=== PATIENT | female | born 1960 | race Caucasian/White ===

== ENCOUNTER 2017-01-21 13:46 | Emergency (ER) | payer MEDICARE, MEDICAID ==
--- NOTE | 2017-01-21 13:55 | EDM.PDOC ---
ED HPI GENERAL MEDICAL PROBLEM - General Chief Complaint: Gastrointestinal Problem Stated Complaint: [id number] IRRITABLE BOWEL Time Seen by Provider: 01/21/17 13:54 Source of Information: Reports: Patient, Old Records, RN, RN Notes Reviewed History Limitations: Reports: No Limitations - History of Present Illness INITIAL COMMENTS - FREE TEXT/NARRATIVE: C/O increasing abdominal pain and nausea and constipation. Last nl BM 4 days ago. Pt reports last BM was normal, but hard. Hx of IBS. Had been doing well. Previously had frequent ER visits due to abdominal pain, but last visit was 2015. Denies vomiting, fever, chills, or urinary Sx's. 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, Other Medication(s) Abdominal Pain Score (Numeric/FACES): 7 - Related Data Allergies Allergy/AdvReac Type Severity Reaction Status Date / Time amlodipine Allergy Nausea Verified 06/15/16 12:10 duloxetine HCl Allergy Diarrhea Verified 06/15/16 12:10 [From Cymbalta] gabapentin Allergy Disorientat Verified 06/15/16 12:10 ion pregabalin [From Lyrica] Allergy Diarrhea Verified 06/15/16 12:10 sumatriptan [From Imitrex] Allergy Respiratory Verified 06/15/16 12:10 Distress sumatriptan succinate Allergy Difficulty Verified 06/15/16 12:10 [From Imitrex] Breathing Home Meds: Home Meds Lisinopril/Hydrochlorothiazide [Lisinopril-Hctz 20-12.5 mg Tab] 1 tab PO BEDTIME 01/08/14 [History] QUEtiapine Fumarate [Quetiapine Fumarate] 100 mg PO BID 01/08/14 [History] Ranitidine HCl [Ranitidine] 150 mg PO BID 01/08/14 [History] Tiotropium [Spiriva Handihaler] 2 puff PO DAILY PRN 01/08/14 [History] Metoprolol Succinate [Toprol XL] 50 mg PO DAILY 09/26/14 [History] Albuterol [Proair HFA] 2 inh INH Q4H PRN 09/29/14 [History] Albuterol [Proventil Neb Soln] 3 ml INH ASDIRECTED PRN 09/29/14 [History] Bisacodyl [Dulcolax] 5 mg PO ASDIRECTED PRN 09/29/14 [History] Dicyclomine [Bentyl] 20 mg PO ASDIRECTED PRN 09/29/14 [History] Escitalopram [Lexapro] 20 mg PO DAILY 09/29/14 [History] Fluticasone Propionate [Flonase] 2 sprays INH DAILY 09/29/14 [History] Baclofen [Baclofen] 10 mg PO ASDIRECTED MDD pain 01/21/17 [History] Promethazine [Phenergan] 1 tab PO ASDIRECTED PRN 01/21/17 [History] Past Medical History HEENT History: Reports: Allergic Rhinitis Cardiovascular History: Reports: High Cholesterol, Hypertension Respiratory History: Reports: COPD Gastrointestinal History: Reports: Bowel Obstruction, Cholelithiasis, GERD, Irritable Bowel Syndrome Other Gastrointestinal History: Irritable Bowel 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: Neurological History: Reports: CVA, Migraines, Seizure Psychiatric History: Reports: Addiction, Anxiety, Depression Endocrine/Metabolic History: Reports: Obesity/BMI 30+ - Past Surgical History Female Surgical History: Reports: Hysterectomy Social & Family History - Family History Family Medical History: Noncontributory - Tobacco Use Smoking Status *Q: Current Every Day Smoker Years of Tobacco use: 20 Packs/Tins Daily: 1 Used Tobacco, but Quit: No Second Hand Smoke Exposure: Yes - Caffeine Use Caffeine Use: Reports: Coffee - Alcohol Use Days Per Week of Alcohol Use: 2 Number of Drinks Per Day: 6 Total Drinks Per Week: 12 - Recreational Drug Use Recreational Drug Use: Yes Drug Use in Last 12 Months: Yes Recreational Drug Type: Reports: Marijuana/Hashish Recreational Drug Use Frequency: Rarely - Living Situation & Occupation Living situation: Reports: Single, with Significant Other Occupation: Disabled ED ROS GENERAL - Review of Systems Review Of Systems: ROS reveals no pertinent complaints other than HPI. ED EXAM, GI/ABD - Physical Exam Exam: See Below Exam Limited By: No Limitations General Appearance: Alert, WD/WN, No Apparent Distress, Anxious, Obese Throat/Mouth: Normal Inspection Head: Atraumatic, Normocephalic Neck: Normal Inspection Respiratory/Chest: No Respiratory Distress, Lungs Clear, Normal Breath Sounds, No Accessory Muscle Use, Chest Non-Tender Cardiovascular: Regular Rate, Rhythm GI/Abdominal: Soft, No Distention, No Abnormal Bruit, Hyperactive Bowel Sounds, Tenderness (generalized). No: Guarding, Rebound, Rigidity Back Exam: Normal Inspection Extremities: Normal Inspection Neurological: Alert, Oriented, CN II-XII Intact, Normal Cognition, Normal Gait, No Motor/Sensory Deficits Psychiatric: Normal Affect, Normal Mood Skin Exam: Warm, Dry, Intact, Normal Color, No Rash Course - Vital Signs Last Recorded V/S: Last Vital Signs Temp 37.0 C 01/21/17 13:48 Pulse 83 01/21/17 13:48 Resp 16 01/21/17 13:48 BP 118/102 H 01/21/17 13:48 Pulse Ox 100 01/21/17 13:48 - Orders/Labs/Meds Orders: Active Orders 24 hr Category Date Time Status Enema [RC] ASDIRECTED Care 01/21/17 14:35 Active Meds: Medications Discontinued Medications Generic Name Dose Route Start Last Admin Trade Name Freq PRN Reason Stop Dose Admin Lorazepam 1 mg 01/21/17 14:10 01/21/17 14:25 Ativan IM 01/21/17 14:11 1 mg ONETIME ONE Administration Ondansetron HCl 4 mg 01/21/17 14:35 01/21/17 14:40 Zofran Odt PO 01/21/17 14:36 4 mg ONETIME ONE Administration - Radiology Interpretation Free Text/Narrative:: ABD. Xray: non-obstructive bowel gas pattern, mild constipation/fecal impaction , see Rad. report. - Re-Assessments/Exams Free Text/Narrative Re-Assessment/Exam: 01/21/17 15:09 Pt sent to medical floor for soap suds enema for hard stool fecal impaction. Departure - Departure Time of Disposition: 17:03 Disposition: Home, Self-Care 01 Condition: good Clinical Impression: Constipation IBS (irritable bowel syndrome) Qualifiers: Irritable bowel syndrome type: with constipation Qualified Code(s): K58.1 - Irritable bowel syndrome with constipation - Discharge Information Instructions: Irritable Bowel Syndrome, Adult, Constipation, Adult, Easy-to- Read Forms: ED Department Discharge Additional Instructions: High fiber diet. Drink plenty of water. Eat prunes and/or drink prune juice. Follow up in clinic with your doctor next week. Return to ER if worse at any time. - My Orders Last 24 Hours: My Active Orders 01/21/17 14:35 Enema [RC] ASDIRECTED - Assessment/Plan Last 24 Hours: My Active Orders 01/21/17 14:35 Enema [RC] ASDIRECTED
[2017-01-21] MEDS ORDERED: LORazepam 2 MG/ML Syringe IM ONE (14:10)
[2017-01-21 14:13] VITALS: BP 118/102
--- NOTE | 2017-01-21 14:32 | CR ---
Clinical history: 56-year-old female emergency department with "constipation and abdominal pain. Interpretation: Solitary surgical clip right side of the pelvis. Large abdominal soft tissue pannus. Small amount of stool in the ascending right colon and rectal vault. No other foreign body, abdominal soft tissue mass, mechanical bowel obstruction or intraperitoneal c alcifications. No free subdiaphragmatic air. Lung bases clear. Hypertrophic arthritic changes bridging the lower thoracic vertebral bodies, particularly on the rig ht. CONCLUSION: Nonspecific plain film exam abdomen.
[2017-01-21] MEDS ORDERED: Ondansetron 4 MG Tab.DIS PO ONE (14:35)
== END 2017-01-21 17:23 | disposition home or self-care (01) ==
LOC: DL.ED 13:46
DX: K58.1 Irritable bowel syndrome with constipation (principal); I10 Essential (primary) hypertension; J44.9 Chronic obstructive pulmonary disease, unspecified; K21.9 Gastro-esophageal reflux disease without esophagitis; F41.9 Anxiety disorder, unspecified; F32.9 Major depressive disorder, single episode, unspecified; G43.909 Migraine, unspecified, not intractable, without status migrainosus; E66.9 Obesity, unspecified; F17.210 Nicotine dependence, cigarettes, uncomplicated; Z88.8 Allergy status to other drugs, medicaments and biological substances; Z79.899 Other long term (current) drug therapy; E78.00 Pure hypercholesterolemia, unspecified; Z90.710 Acquired absence of both cervix and uterus; Z86.73 Personal history of transient ischemic attack (TIA), and cerebral infarction without residual deficits
CPT/HCPCS: 74020; 99283; 99284; A9270; J2060

== ENCOUNTER 2017-02-16 15:36 | Emergency (ER) | payer MEDICARE, MEDICAID ==
[2017-02-16 17:21] VITALS: BP 135/83
[2017-02-16] MEDS ORDERED: Promethazine 25 MG/ML SDV IM ONE (17:52)
[2017-02-16] MEDS ORDERED: Ketorolac 30 MG/ML SDV IM ONE (17:52)
--- NOTE | 2017-02-16 17:55 | EDM.PDOC ---
ED HPI GENERAL MEDICAL PROBLEM - General Chief Complaint: Abdominal Pain Stated Complaint: IRRITABLE BOWL Time Seen by Provider: 02/16/17 17:53 Source of Information: Reports: Patient History Limitations: Reports: No Limitations - History of Present Illness INITIAL COMMENTS - FREE TEXT/NARRATIVE: pt states that she has been prepping for a GI study tomorrow with bowel prep and it has caused her IBS to flare. States that she has had multiple rounds of diarrhea and severe abdominal cramping. No other complaints. Onset: Today Duration: Waxing/Waning Location: Reports: Abdomen Quality: Reports: Other (cramping) Improves with: Reports: None Worsens with: Reports: Medication Associated Symptoms: Reports: Nausea/Vomiting - Related Data Allergies Allergy/AdvReac Type Severity Reaction Status Date / Time amlodipine Allergy Nausea Verified 06/15/16 12:10 duloxetine HCl Allergy Diarrhea Verified 06/15/16 12:10 [From Cymbalta] gabapentin Allergy Disorientat Verified 06/15/16 12:10 ion pregabalin [From Lyrica] Allergy Diarrhea Verified 06/15/16 12:10 sumatriptan [From Imitrex] Allergy Respiratory Verified 06/15/16 12:10 Distress sumatriptan succinate Allergy Difficulty Verified 06/15/16 12:10 [From Imitrex] Breathing Home Meds: Home Meds Lisinopril/Hydrochlorothiazide [Lisinopril-Hctz 20-12.5 mg Tab] 1 tab PO BEDTIME 01/08/14 [History] QUEtiapine Fumarate [Quetiapine Fumarate] 100 mg PO BID 01/08/14 [History] Ranitidine HCl [Ranitidine] 150 mg PO BID 01/08/14 [History] Tiotropium [Spiriva Handihaler] 2 puff PO DAILY PRN 01/08/14 [History] Metoprolol Succinate [Toprol XL] 50 mg PO DAILY 09/26/14 [History] Albuterol [Proair HFA] 2 inh INH Q4H PRN 09/29/14 [History] Albuterol [Proventil Neb Soln] 3 ml INH ASDIRECTED PRN 09/29/14 [History] Bisacodyl [Dulcolax] 5 mg PO ASDIRECTED PRN 09/29/14 [History] Dicyclomine [Bentyl] 20 mg PO ASDIRECTED PRN 09/29/14 [History] Escitalopram [Lexapro] 20 mg PO DAILY 09/29/14 [History] Fluticasone Propionate [Flonase] 2 sprays INH DAILY 09/29/14 [History] Baclofen [Baclofen] 10 mg PO ASDIRECTED MDD pain 01/21/17 [History] Promethazine [Phenergan] 1 tab PO ASDIRECTED PRN 01/21/17 [History] Past Medical History HEENT History: Reports: Allergic Rhinitis Cardiovascular History: Reports: High Cholesterol, Hypertension Respiratory History: Reports: COPD Gastrointestinal History: Reports: Bowel Obstruction, Cholelithiasis, GERD, Irritable Bowel Syndrome Other Gastrointestinal History: 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 Bowel 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: Neurological History: Reports: CVA, Migraines, Seizure Psychiatric History: Reports: Addiction, Anxiety, Depression Endocrine/Metabolic History: Reports: Obesity/BMI 30+ - Past Surgical History Female Surgical History: Reports: Hysterectomy Social & Family History - Family History Family Medical History: Noncontributory - Tobacco Use Smoking Status *Q: Current Every Day Smoker Years of Tobacco use: 20 Packs/Tins Daily: 1 Used Tobacco, but Quit: No Second Hand Smoke Exposure: Yes - Caffeine Use Caffeine Use: Reports: Coffee - Alcohol Use Days Per Week of Alcohol Use: 2 Number of Drinks Per Day: 6 Total Drinks Per Week: 12 - Recreational Drug Use Recreational Drug Use: Yes Drug Use in Last 12 Months: Yes Recreational Drug Type: Reports: Marijuana/Hashish Recreational Drug Use Frequency: Rarely - Living Situation & Occupation Living situation: Reports: Single, with Significant Other Occupation: Disabled ED ROS GENERAL - Review of Systems Review Of Systems: ROS reveals no pertinent complaints other than HPI. ED EXAM, GI/ABD - Physical Exam Exam: See Below Exam Limited By: No Limitations General Appearance: Alert, WD/WN, No Apparent Distress Respiratory/Chest: No Respiratory Distress, Lungs Clear, Normal Breath Sounds, No Accessory Muscle Use, Chest Non-Tender Cardiovascular: Normal Peripheral Pulses, Regular Rate, Rhythm, No Edema, No Gallop, No JVD, No Murmur, No Rub GI/Abdominal: Soft, No Organomegaly, No Distention, No Abnormal Bruit, No Mass, Hyperactive Bowel Sounds, Tenderness (diffusely) Neurological: Alert, Oriented, CN II-XII Intact, Normal Cognition, Normal Gait, Normal Reflexes, No Motor/Sensory Deficits Course - Vital Signs Last Recorded V/S: Last Vital Signs Temp 98.2 F 02/16/17 17:21 Pulse 63 02/16/17 17:21 Resp 18 02/16/17 17:21 BP 135/83 02/16/17 17:21 Pulse Ox 94 L 02/16/17 17:21 - Orders/Labs/Meds Labs: Laboratory Tests 02/16/17 02/16/17 Range/Units 18:04 18:04 WBC 7.4 (5.0-10.0) 10^3/uL RBC 4.48 (4.2-5.4) 10^6/uL Hgb 15.1 (12.0-16.0) g/dL Hct 43.8 (37.0-47.0) % MCV 97.8 (80-100) fL MCH 33.7 (27.0-34.0) pg MCHC 34.5 (33.0-35.0) g/dL Plt Count 189 (150-450) 10^3/uL Neut % (Auto) 54.6 (42.2-75.2) % Lymph % (Auto) 35.2 (20.5-50.1) % [place] % (Auto) 8.0 (2-8) % Eos % (Auto) 1.9 (1.0-3.0) % Baso % (Auto) 0.3 (0.0-1.0) % Sodium 140 (135-145) mmol/L Potassium 4.5 (3.6-5.0) mmol/L Chloride 102 (101-111) mmol/L Carbon Dioxide 30.0 (21.0-31.0) mmol/L Anion Gap 12.5 BUN 24 H (7-18) mg/dL Creatinine 0.9 (0.6-1.3) mg/dL Est Cr Clr Drug Dosing TNP Estimated GFR (MDRD) > 60 Glucose 77 (74-105) mg/dL Calcium 8.9 (8.4-10.2) mg/dl Meds: Medications Discontinued Medications Generic Name Dose Route Start Last Admin Trade Name Freq PRN Reason Stop Dose Admin Ketorolac Tromethamine 30 mg 02/16/17 17:52 02/16/17 18:11 Toradol IM 02/16/17 17:53 30 mg ONETIME ONE Administration Promethazine HCl 25 mg 02/16/17 17:52 02/16/17 18:10 Phenergan IM 02/16/17 17:53 25 mg ONETIME ONE Administration - Re-Assessments/Exams Free Text/Narrative Re-Assessment/Exam: 02/16/17 18:43 lab work does not reveal acute dehydration. Pt states that she feels much better and is ready to go home. Departure - Departure Time of Disposition: 18:44 Disposition: Home, Self-Care 01 Condition: Good Clinical Impression: Irritable bowel syndrome Qualifiers: Irritable bowel syndrome type: with diarrhea Qualified Code(s): K58.0 - Irritable bowel syndrome with diarrhea Vomiting Qualifiers: Vomiting type: unspecified Vomiting Intractability: intractable Nausea presence : with nausea Qualified Code(s): R11.2 - Nausea with vomiting, unspecified - Discharge Information Instructions: Nausea and Vomiting, Adult, [id number], Irritable Bowel Syndrome, Adult Forms: ED Department Discharge Additional Instructions: Continue the bowel prep as tolerated and keep appointment in [place] in the morning. Return for any worsening symptoms.
[2017-02-16 18:32] LABS: CHLORIDE,CL 102 mmol/L (101-111); SODIUM,NA 140 mmol/L (135-145)
== END 2017-02-16 18:54 | disposition home or self-care (01) ==
LOC: DL.ED 15:36
DX: K58.0 Irritable bowel syndrome with diarrhea (principal); R11.2 Nausea with vomiting, unspecified; E78.00 Pure hypercholesterolemia, unspecified; I10 Essential (primary) hypertension; J44.9 Chronic obstructive pulmonary disease, unspecified; K21.9 Gastro-esophageal reflux disease without esophagitis; G43.909 Migraine, unspecified, not intractable, without status migrainosus; E66.9 Obesity, unspecified; Z90.710 Acquired absence of both cervix and uterus; F17.210 Nicotine dependence, cigarettes, uncomplicated; F32.9 Major depressive disorder, single episode, unspecified; F41.9 Anxiety disorder, unspecified; Z88.8 Allergy status to other drugs, medicaments and biological substances; Z79.899 Other long term (current) drug therapy; Z86.73 Personal history of transient ischemic attack (TIA), and cerebral infarction without residual deficits
CPT/HCPCS: 36415; 80048; 85025; 96372; 99283; 99284; J1885; J2550

== ENCOUNTER 2017-04-20 15:17 | Emergency (ER) | payer MEDICARE, MEDICAID ==
[2017-04-20 17:14] VITALS: BP 114/65
[2017-04-20] MEDS ORDERED: Ketorolac 30 MG/ML SDV IM ONE (18:48)
--- NOTE | 2017-04-20 18:49 | EDM.PDOC ---
<Celina Menard - Last Filed: 04/21/17 02:14> ED HPI GENERAL MEDICAL PROBLEM - General Chief Complaint: Lower Extremity Injury/Pain Stated Complaint: HIP PAIN,THROWING UP BLOOD, [id number] Time Seen by Provider: 04/20/17 18:44 - Related Data Allergies Allergy/AdvReac Type Severity Reaction Status Date / Time amlodipine Allergy Nausea Verified 04/20/17 17:11 duloxetine HCl Allergy Diarrhea Verified 04/20/17 17:11 [From Cymbalta] gabapentin Allergy Disorientat Verified 04/20/17 17:11 ion pregabalin [From Lyrica] Allergy Diarrhea Verified 04/20/17 17:11 sumatriptan [From Imitrex] Allergy Respiratory Verified 04/20/17 17:11 Distress sumatriptan succinate Allergy Difficulty Verified 04/20/17 17:11 [From Imitrex] Breathing Home Meds: Home Meds Lisinopril/Hydrochlorothiazide [Lisinopril-Hctz 20-12.5 mg Tab] 1 tab PO BEDTIME 01/08/14 [History] QUEtiapine Fumarate [Quetiapine Fumarate] 100 mg PO BID 01/08/14 [History] Ranitidine HCl [Ranitidine] 150 mg PO BID 01/08/14 [History] Tiotropium [Spiriva Handihaler] 2 puff PO DAILY PRN 01/08/14 [History] Metoprolol Succinate [Toprol XL] 50 mg PO DAILY 09/26/14 [History] Albuterol [Proair HFA] 2 inh INH Q4H PRN 09/29/14 [History] Albuterol [Proventil Neb Soln] 3 ml INH ASDIRECTED PRN 09/29/14 [History] Bisacodyl [Dulcolax] 5 mg PO ASDIRECTED PRN 09/29/14 [History] Dicyclomine [Bentyl] 20 mg PO ASDIRECTED PRN 09/29/14 [History] Escitalopram [Lexapro] 20 mg PO DAILY 09/29/14 [History] Fluticasone Propionate [Flonase] 2 sprays INH DAILY 09/29/14 [History] Baclofen [Baclofen] 10 mg PO ASDIRECTED MDD pain 01/21/17 [History] Promethazine [Phenergan] 1 tab PO ASDIRECTED PRN 01/21/17 [History] Course - Vital Signs Last Recorded V/S: Last Vital Signs Temp 97.5 F 04/20/17 17:11 Pulse 86 04/20/17 17:11 Resp 18 04/20/17 17:11 BP 114/65 04/20/17 17:11 Pulse Ox 96 04/20/17 17:11 - Orders/Labs/Meds Meds: Medications Discontinued Medications Generic Name Dose Route Start Last Admin Trade Name Itzel PRN Reason Stop Dose Admin Ketorolac Tromethamine 30 mg 04/20/17 18:48 04/20/17 19:26 Toradol IM 04/20/17 18:49 30 mg ONETIME ONE Administration Orphenadrine Citrate 60 mg 04/20/17 19:00 04/20/17 19:27 Norflex IM 60 mg Q12H PHILLIP Administration - Radiology Interpretation Free Text/Narrative:: xray hip and pelvis negative for fracture or dislocation. Mild degenerative changes bilateral hips. Departure - Departure Time of Disposition: 20:28 Disposition: Home, Self-Care 01 Condition: Fair Clinical Impression: Hip pain Qualifiers: Laterality: left Qualified Code(s): M25.552 - Pain in left hip - Discharge Information Instructions: Hip Pain Referrals: PCP,None [Primary Care Provider] - Forms: ED Department Discharge Additional Instructions: rest alternate heat and ice tylenol 650mg every 6 hours as needed for discomfort clinic follow up if not improving <Nish Abarca - Last Filed: 04/21/17 14:53> ED HPI GENERAL MEDICAL PROBLEM - General Source of Information: Reports: Patient History Limitations: Reports: No Limitations - History of Present Illness INITIAL COMMENTS - FREE TEXT/NARRATIVE: 56 yo female presents with left hip pain today. States that she got a cortisone shot 1 week ago. States' I was just walking and it began hurting." Also states that she has been vomiting blood but was seen in Dr. Herrera's office yesterday for the vomiting and he treated it. Denies vomiting currently. No other complaints. 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: Musculoskeletal History: Reports: Arthritis Neurological History: Reports: CVA, Migraines, Seizure Psychiatric History: Reports: Addiction, Anxiety, Depression Endocrine/Metabolic History: Reports: Obesity/BMI 30+ - Past Surgical History Female Surgical History: Reports: Hysterectomy Social & Family History - Family History Family Medical History: Noncontributory - Tobacco Use Smoking Status *Q: Current Every Day Smoker Years of Tobacco use: 40 Packs/Tins Daily: 1 Used Tobacco, but Quit: No Second Hand Smoke Exposure: Yes - Caffeine Use Caffeine Use: Reports: Coffee, Soda, Tea - Alcohol Use Days Per Week of Alcohol Use: 2 Number of Drinks Per Day: 6 Total Drinks Per Week: 12 - Recreational Drug Use Recreational Drug Use: No Drug Use in Last 12 Months: Yes Recreational Drug Type: Reports: Marijuana/Hashish Recreational Drug Use Frequency: Rarely - Living Situation & Occupation Living situation: Reports: Single, with Significant Other Occupation: Disabled Review of Systems - Review of Systems Review Of Systems: ROS reveals no pertinent complaints other than HPI. ED EXAM, GENERAL - Physical Exam Exam: See Below Exam Limited By: No Limitations General Appearance: Alert, WD/WN, No Apparent Distress Head: Atraumatic, Normocephalic Neck: Normal Inspection, Supple, Non-Tender, Full Range of Motion Respiratory/Chest: No Respiratory Distress, Lungs Clear, Normal Breath Sounds, No Accessory Muscle Use, Chest Non-Tender Cardiovascular: Normal Peripheral Pulses, Regular Rate, Rhythm, No Edema, No Gallop, No JVD, No Murmur, No Rub Back Exam: Normal Inspection, Full Range of Motion, NT Extremities: Normal Inspection, Non-Tender, No Pedal Edema, Normal Capillary Refill, Leg Pain (left hip), Limited Range of Motion (due to pain of left hip) Neurological: Alert, Oriented, CN II-XII Intact, Normal Cognition, Normal Gait, No Motor/Sensory Deficits Psychiatric: Normal Affect, Anxious, Other (extrapyramidal effects noted to mouth( tardive dyskesnia)) Course - Orders/Labs/Meds Meds: Medications Discontinued Medications Generic Name Dose Route Start Last Admin Trade Name Freq PRN Reason Stop Dose Admin Ketorolac Tromethamine 30 mg 04/20/17 18:48 04/20/17 19:26 Toradol IM 04/20/17 18:49 30 mg ONETIME ONE Administration Orphenadrine Citrate 60 mg 04/20/17 19:00 04/20/17 19:27 Norflex IM 60 mg Q12H PHILLIP Administration
== END 2017-04-20 20:38 | disposition home or self-care (01) ==
LOC: DL.ED 15:17
DX: M25.552 Pain in left hip (principal); E78.00 Pure hypercholesterolemia, unspecified; I10 Essential (primary) hypertension; J44.9 Chronic obstructive pulmonary disease, unspecified; K21.9 Gastro-esophageal reflux disease without esophagitis; M19.90 Unspecified osteoarthritis, unspecified site; G43.909 Migraine, unspecified, not intractable, without status migrainosus; F17.210 Nicotine dependence, cigarettes, uncomplicated; F41.9 Anxiety disorder, unspecified; F32.9 Major depressive disorder, single episode, unspecified
CPT/HCPCS: 72190; 96372; 99283; J1885; J2360

== ENCOUNTER 2017-06-07 12:02 | Emergency (ER) | payer MEDICARE, MEDICAID ==
[2017-06-07 12:56] VITALS: BP 133/75
== END 2017-06-07 14:16 | disposition left against medical advice (07) ==
LOC: DL.ED 12:02
DX: Z53.21 Procedure and treatment not carried out due to patient leaving prior to being seen by health care provider (principal)

== ENCOUNTER 2017-07-28 13:07 | Emergency (ER) | payer MEDICARE, MEDICAID ==
[2017-07-28 13:26] VITALS: BP 127/63
--- NOTE | 2017-07-28 13:34 | EDM.PDOC ---
ED HPI GENERAL MEDICAL PROBLEM - General Chief Complaint: Lower Extremity Injury/Pain Stated Complaint: HIP PAIN Time Seen by Provider: 07/28/17 13:33 Source of Information: Reports: Patient, RN, RN Notes Reviewed History Limitations: Reports: No Limitations - History of Present Illness INITIAL COMMENTS - FREE TEXT/NARRATIVE: C/O left hip pain without recent injury. One week ago pt had a steroid injection to the left hip for arthritic joint pain. The last time she had the same left hip injection a few days afterward she had this same problem of muscle spasms in the buttock and hip region. Denies radiating pain, numbness, or tingling. She does have chronic low back pain and will be having an epidural steroid injection of the lumbar spine next week. 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: Other Medication(s) Left Hip Pain Score (Numeric/FACES): 6 - Related Data Allergies Allergy/AdvReac Type Severity Reaction Status Date / Time amlodipine Allergy Nausea Verified 07/28/17 13:14 duloxetine HCl Allergy Diarrhea Verified 07/28/17 13:14 [From Cymbalta] gabapentin Allergy Disorientat Verified 07/28/17 13:14 ion pregabalin [From Lyrica] Allergy Diarrhea Verified 07/28/17 13:14 sumatriptan [From Imitrex] Allergy Respiratory Verified 07/28/17 13:14 Distress sumatriptan succinate Allergy Difficulty Verified 07/28/17 13:14 [From Imitrex] Breathing Home Meds: Home Meds Lisinopril/Hydrochlorothiazide [Lisinopril-Hctz 20-12.5 mg Tab] 1 tab PO BEDTIME 01/08/14 [History] Tiotropium [Spiriva Handihaler] 2 puff PO DAILY PRN 01/08/14 [History] Metoprolol Succinate [Toprol XL] 50 mg PO DAILY 09/26/14 [History] Albuterol [Proair HFA] 2 inh INH Q4H PRN 09/29/14 [History] Albuterol [Proventil Neb Soln] 3 ml INH ASDIRECTED PRN 09/29/14 [History] Dicyclomine [Bentyl] 20 mg PO ASDIRECTED PRN 09/29/14 [History] Fluticasone Propionate [Flonase] 2 sprays INH DAILY 09/29/14 [History] Acetaminophen [Tylenol Arthritis] 650 mg PO TID 06/07/17 [History] Cyclobenzaprine [Flexeril] 10 mg PO BID 06/07/17 [History] Ibuprofen 1 tab PO TID PRN 06/07/17 [History] Omeprazole 20 mg PO DAILY 06/07/17 [History] hydrOXYzine HCl [Atarax] 25 mg PO TID PRN 07/28/17 [History] Past Medical History HEENT History: Reports: Allergic Rhinitis Cardiovascular History: Reports: High Cholesterol, Hypertension Respiratory History: Reports: COPD Gastrointestinal History: Reports: Bowel Obstruction, Cholelithiasis, GERD, Irritable Bowel Syndrome Other Gastrointestinal History: Irritable Bowel Syndrome MRI TECH History: Reports: Musculoskeletal History: Reports: Arthritis, Fibromyalgia Neurological History: Reports: CVA, Migraines, Seizure Psychiatric History: Reports: Addiction, Anxiety, Depression Endocrine/Metabolic History: Reports: Obesity/BMI 30+ - Past Surgical History Female Surgical History: Reports: Hysterectomy Social & Family History - Family History Family Medical History: Noncontributory - Tobacco Use Smoking Status *Q: Current Every Day Smoker Years of Tobacco use: 30 Packs/Tins Daily: 1 Used Tobacco, but Quit: No Second Hand Smoke Exposure: Yes - Caffeine Use Caffeine Use: Reports: Coffee - Alcohol Use Days Per Week of Alcohol Use: 2 Number of Drinks Per Day: 6 Total Drinks Per Week: 12 - Recreational Drug Use Recreational Drug Use: Yes Drug Use in Last 12 Months: Yes Recreational Drug Type: Reports: Marijuana/Hashish Recreational Drug Use Frequency: Daily - Living Situation & Occupation Living situation: Reports: Single, with Significant Other Occupation: Disabled Review of Systems - Review of Systems Review Of Systems: ROS reveals no pertinent complaints other than HPI. ED EXAM, GENERAL - Physical Exam Exam: See Below Exam Limited By: No Limitations General Appearance: Alert, WD/WN, No Apparent Distress Respiratory/Chest: No Respiratory Distress GI/Abdominal: Normal Bowel Sounds, Soft, Non-Tender, Pelvis Stable (Female) Exam: Deferred Rectal (Female) Exam: Deferred Back Exam: Decreased Range of Motion (lumbar region), Muscle Spasm (lower lumbar and left buttock), Paraspinal Tenderness (lower lumbar). No: CVA Tenderness (L), CVA Tenderness (R) Extremities: No Pedal Edema, Normal Capillary Refill, Limited Range of Motion ( left hip). No: Increased Warmth, Redness Neurological: Alert, Oriented, Normal Cognition, No Motor/Sensory Deficits Psychiatric: Normal Affect, Normal Mood Skin Exam: Warm, Dry, Intact, Normal Color, No Rash Course - Vital Signs Last Recorded V/S: Last Vital Signs Temp 36.4 C 07/28/17 13:23 Pulse 76 07/28/17 13:23 Resp 16 07/28/17 13:23 BP 127/63 07/28/17 13:23 Pulse Ox 100 07/28/17 13:23 - Orders/Labs/Meds Meds: Medications Discontinued Medications Generic Name Dose Route Start Last Admin Trade Name Freq PRN Reason Stop Dose Admin Ketorolac Tromethamine 30 mg 07/28/17 13:42 Toradol IM 07/28/17 13:43 ONETIME ONE Orphenadrine Citrate 60 mg 07/28/17 13:42 Norflex IM 07/28/17 13:43 ONETIME ONE Departure - Departure Time of Disposition: 13:49 Disposition: Home, Self-Care 01 Condition: Fair Clinical Impression: Spasm of left piriformis muscle Hip pain Qualifiers: Laterality: left Qualified Code(s): M25.552 - Pain in left hip - Discharge Information Forms: ED Department Discharge Additional Instructions: Alternate heat and ice packs to area of pain and spasm. Activity as tolerated. Follow up in clinic with your doctor if not improving in 24 hours.
[2017-07-28] MEDS ORDERED: Ketorolac 30 MG/ML SDV IM ONE (13:42)
== END 2017-07-28 14:01 | disposition home or self-care (01) ==
LOC: DL.ED 13:07
DX: M62.838 Other muscle spasm (principal); M25.552 Pain in left hip; I10 Essential (primary) hypertension; E78.00 Pure hypercholesterolemia, unspecified; J44.9 Chronic obstructive pulmonary disease, unspecified; K21.9 Gastro-esophageal reflux disease without esophagitis; F32.9 Major depressive disorder, single episode, unspecified; F17.210 Nicotine dependence, cigarettes, uncomplicated; Z79.899 Other long term (current) drug therapy; Z88.8 Allergy status to other drugs, medicaments and biological substances; Z90.710 Acquired absence of both cervix and uterus
CPT/HCPCS: 96372; 99283; J1885; J2360; 99282

== ENCOUNTER 2017-12-06 20:14 | Emergency (ER) | payer MEDICARE, MEDICAID ==
[2017-12-06 20:32] VITALS: BP 98/70
[2017-12-06] MEDS ORDERED: Ketorolac 30 MG/ML SDV IM ONE (20:46)
--- NOTE | 2017-12-06 20:52 | EDM.PDOC ---
ED HPI GENERAL MEDICAL PROBLEM - General Chief Complaint: Lower Extremity Injury/Pain Stated Complaint: [id number] ARTHRITIS IN HIPS REALLY BAD Time Seen by Provider: 12/06/17 20:47 Source of Information: Reports: Patient History Limitations: Reports: No Limitations - History of Present Illness INITIAL COMMENTS - FREE TEXT/NARRATIVE: gives h/o right hip pain getting steroid shots in GF. has another appt on . Left Hip Pain Score (Numeric/FACES): 8 - Related Data Allergies Allergy/AdvReac Type Severity Reaction Status Date / Time amlodipine Allergy Nausea Verified 12/06/17 20:30 duloxetine HCl Allergy Diarrhea Verified 12/06/17 20:30 [From Cymbalta] gabapentin Allergy Disorientat Verified 12/06/17 20:30 ion pregabalin [From Lyrica] Allergy Diarrhea Verified 12/06/17 20:30 sumatriptan [From Imitrex] Allergy Respiratory Verified 12/06/17 20:30 Distress sumatriptan succinate Allergy Difficulty Verified 12/06/17 20:30 [From Imitrex] Breathing Home Meds: Home Meds Lisinopril/Hydrochlorothiazide [Lisinopril-Hctz 20-12.5 mg Tab] 1 tab PO BEDTIME 01/08/14 [History] Tiotropium [Spiriva Handihaler] 2 puff PO DAILY PRN 01/08/14 [History] Metoprolol Succinate [Toprol XL] 50 mg PO DAILY 09/26/14 [History] Dicyclomine [Bentyl] 20 mg PO ASDIRECTED PRN 09/29/14 [History] Fluticasone Propionate [Flonase] 2 sprays INH DAILY 09/29/14 [History] Acetaminophen [Tylenol Arthritis] 650 mg PO TID 06/07/17 [History] Cyclobenzaprine [Flexeril] 10 mg PO BID 06/07/17 [History] Ibuprofen 1 tab PO TID PRN 06/07/17 [History] Omeprazole 20 mg PO DAILY 06/07/17 [History] hydrOXYzine HCl [Atarax] 25 mg PO TID PRN 07/28/17 [History] Past Medical History HEENT History: Reports: Allergic Rhinitis, Impaired Vision Cardiovascular History: Reports: Heart Murmur, High Cholesterol, Hypertension Respiratory History: Reports: Asthma, COPD Gastrointestinal History: Reports: Bowel Obstruction, Cholelithiasis, GERD, Irritable Bowel Syndrome Other Gastrointestinal History: Irritable Bowel Syndrome 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: Reports: Musculoskeletal History: Reports: Arthritis, Fibromyalgia Neurological History: Reports: CVA, Migraines, Seizure Psychiatric History: Reports: Addiction, Anxiety, Depression Endocrine/Metabolic History: Reports: Obesity/BMI 30+ - Past Surgical History Female Surgical History: Reports: Hysterectomy Social & Family History - Family History Family Medical History: Noncontributory - Tobacco Use Smoking Status *Q: Current Every Day Smoker Years of Tobacco use: 25 Packs/Tins Daily: 1 Used Tobacco, but Quit: No Second Hand Smoke Exposure: Yes - Caffeine Use Caffeine Use: Reports: Coffee - Alcohol Use Days Per Week of Alcohol Use: 2 Number of Drinks Per Day: 6 Total Drinks Per Week: 12 - Recreational Drug Use Recreational Drug Use: Yes Drug Use in Last 12 Months: Yes Recreational Drug Type: Reports: Marijuana/Hashish Recreational Drug Use Frequency: Daily - Living Situation & Occupation Living situation: Reports: Single, with Significant Other Occupation: Disabled Review of Systems - Review of Systems Review Of Systems: ROS reveals no pertinent complaints other than HPI. ED EXAM, GENERAL - Physical Exam Exam: See Below Exam Limited By: No Limitations General Appearance: Alert, WD/WN, Mild Distress, Other (tearful) Ears: Hearing Grossly Normal Throat/Mouth: Normal Voice, No Airway Compromise Head: Atraumatic Neck: Non-Tender, Full Range of Motion Respiratory/Chest: No Respiratory Distress Cardiovascular: Regular Rate, Rhythm GI/Abdominal: Soft, Non-Tender Extremities: Other (left hip pain to R/P NV wnl, gait limited to pain) Neurological: Alert, Oriented, Normal Cognition, No Motor/Sensory Deficits Psychiatric: Tearful Skin Exam: Warm, Dry, Normal Color Lymphatic: No Adenopathy Course - Vital Signs Last Recorded V/S: Last Vital Signs Temp 36.9 C 12/06/17 20:30 Pulse 52 L 12/06/17 20:30 Resp 20 12/06/17 20:30 BP 98/70 12/06/17 20:30 Pulse Ox 99 12/06/17 20:30 - Orders/Labs/Meds Orders: Active Orders 24 hr Category Date Time Status Ketorolac [Toradol] Med 12/06/17 20:46 Once 30 mg IM ONETIME ONE Orphenadrine [Norflex] Med 12/06/17 21:00 Ordered 60 mg IM Q12H Departure - Departure Time of Disposition: 20:51 Disposition: Home, Self-Care 01 Condition: Good Clinical Impression: Hip pain Qualifiers: Laterality: left Qualified Code(s): M25.552 - Pain in left hip - Discharge Information Instructions: Hip Bursitis, [id number] Referrals: Gustavo Britt NP [Primary Care Provider] - Additional Instructions: 1) rest 2) try heat or ice to area for comfort 3) follow up with family doctor - My Orders Last 24 Hours: My Active Orders 12/06/17 20:46 Ketorolac [Toradol] 30 mg IM ONETIME ONE 12/06/17 21:00 Orphenadrine [Norflex] 60 mg IM Q12H - Assessment/Plan Last 24 Hours: My Active Orders 12/06/17 20:46 Ketorolac [Toradol] 30 mg IM ONETIME ONE 12/06/17 21:00 Orphenadrine [Norflex] 60 mg IM Q12H
== END 2017-12-06 21:17 | disposition home or self-care (01) ==
LOC: DL.ED 20:14
DX: M25.552 Pain in left hip (principal); F17.210 Nicotine dependence, cigarettes, uncomplicated; I10 Essential (primary) hypertension; E78.00 Pure hypercholesterolemia, unspecified; Z79.899 Other long term (current) drug therapy; Z88.8 Allergy status to other drugs, medicaments and biological substances
CPT/HCPCS: 96372; 99283; J1885; J2360

== ENCOUNTER 2017-12-15 10:13 | Emergency (ER) | payer MEDICARE, MEDICAID ==
[2017-12-15 11:12] VITALS: BP 170/96
[2017-12-15] MEDS ORDERED: Ketorolac 30 MG/ML SDV IM ONE (11:23)
--- NOTE | 2017-12-15 11:27 | EDM.PDOC ---
ED HPI GENERAL MEDICAL PROBLEM - General Chief Complaint: Lower Extremity Injury/Pain Stated Complaint: HIP PAIN Time Seen by Provider: 12/15/17 11:15 Source of Information: Reports: Patient History Limitations: Reports: No Limitations - History of Present Illness INITIAL COMMENTS - FREE TEXT/NARRATIVE: This 57 yo female patient reports to the ED with left hip pain due to chronic arthritis. The patient reports that she was scheduled to have steroid injections on Wednesday of this week, but did not make it to her appointment due to complications with her buggy driver. The patient also reports that her mother is having some additional problems at this time. The patient's presence is necessary for assistance to her mother. Onset: Today Duration: Day(s):, Constant, Getting Worse Location: Reports: Lower Extremity, Left (hip) Quality: Reports: Ache, Stabbing, Throbbing Severity: Severe Improves with: Reports: Rest Associated Symptoms: Reports: No Other Symptoms Treatments PARTY DIRECTOR: Reports: NSAIDS Left Hip Pain Score (Numeric/FACES): 6 - Related Data Allergies Allergy/AdvReac Type Severity Reaction Status Date / Time amlodipine Allergy Nausea Verified 12/06/17 20:30 duloxetine HCl Allergy Diarrhea Verified 12/06/17 20:30 [From Cymbalta] gabapentin Allergy Disorientat Verified 12/06/17 20:30 ion pregabalin [From Lyrica] Allergy Diarrhea Verified 12/06/17 20:30 sumatriptan [From Imitrex] Allergy Respiratory Verified 12/06/17 20:30 Distress sumatriptan succinate Allergy Difficulty Verified 12/06/17 20:30 [From Imitrex] Breathing Home Meds: Home Meds Lisinopril/Hydrochlorothiazide [Lisinopril-Hctz 20-12.5 mg Tab] 1 tab PO BEDTIME 01/08/14 [History] Tiotropium [Spiriva Handihaler] 2 puff PO DAILY PRN 01/08/14 [History] Metoprolol Succinate [Toprol XL] 50 mg PO DAILY 09/26/14 [History] Dicyclomine [Bentyl] 20 mg PO ASDIRECTED PRN 09/29/14 [History] Fluticasone Propionate [Flonase] 2 sprays INH DAILY 09/29/14 [History] Acetaminophen [Tylenol Arthritis] 650 mg PO TID 06/07/17 [History] Cyclobenzaprine [Flexeril] 10 mg PO BID 06/07/17 [History] Ibuprofen 1 tab PO TID PRN 06/07/17 [History] Omeprazole 20 mg PO DAILY 06/07/17 [History] hydrOXYzine HCl [Atarax] 25 mg PO TID PRN 07/28/17 [History] Past Medical History HEENT History: Reports: Allergic Rhinitis, Impaired Vision Cardiovascular History: Reports: Heart Murmur, High Cholesterol, Hypertension Respiratory History: Reports: Asthma, COPD Gastrointestinal History: Reports: Bowel Obstruction, Cholelithiasis, GERD, Irritable Bowel Syndrome Other Gastrointestinal History: Irritable Bowel Syndrome 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: Musculoskeletal History: Reports: Arthritis, Fibromyalgia Neurological History: Reports: CVA, Migraines, Seizure Psychiatric History: Reports: Addiction, Anxiety, Depression Endocrine/Metabolic History: Reports: Obesity/BMI 30+ - Past Surgical History Female Surgical History: Reports: Hysterectomy Social & Family History - Family History Family Medical History: Noncontributory - Tobacco Use Smoking Status *Q: Current Every Day Smoker Years of Tobacco use: 25 Packs/Tins Daily: 1 Used Tobacco, but Quit: No Second Hand Smoke Exposure: Yes - Caffeine Use Caffeine Use: Reports: Coffee - Alcohol Use Days Per Week of Alcohol Use: 2 Number of Drinks Per Day: 6 Total Drinks Per Week: 12 - Recreational Drug Use Recreational Drug Use: Yes Drug Use in Last 12 Months: Yes Recreational Drug Type: Reports: Marijuana/Hashish Recreational Drug Use Frequency: Daily - Living Situation & Occupation Living situation: Reports: Single, with Significant Other Occupation: Disabled Review of Systems - Review of Systems Review Of Systems: ROS reveals no pertinent complaints other than HPI. ED EXAM, GENERAL - Physical Exam Exam: See Below Exam Limited By: No Limitations General Appearance: Alert, WD/WN, Anxious, Moderate Distress, Obese Eye Exam: Bilateral Eye: EOMI, Normal Inspection, PERRL Ears: Normal External Exam, Normal Canal, Hearing Grossly Normal, Normal TMs Nose: Normal Inspection, Normal Mucosa, No Blood Throat/Mouth: Normal Inspection, Normal Lips, Normal Teeth, Normal Gums, Normal Oropharynx, Normal Voice, No Airway Compromise Head: Atraumatic, Normocephalic Neck: Normal Inspection, Supple, Non-Tender, Full Range of Motion Respiratory/Chest: No Respiratory Distress, Lungs Clear, Normal Breath Sounds, No Accessory Muscle Use, Chest Non-Tender Cardiovascular: Normal Peripheral Pulses, Regular Rate, Rhythm, No Edema, No Gallop, No JVD, No Murmur, No Rub GI/Abdominal: Normal Bowel Sounds, Soft, Non-Tender, No Organomegaly, No Distention, No Abnormal Bruit, No Mass (Female) Exam: Deferred Rectal (Female) Exam: Deferred Back Exam: Normal Inspection, Full Range of Motion, NT Extremities: Leg Pain (left hip pain), Limited Range of Motion (due to pain in the left hip) Neurological: Alert, Oriented, CN II-XII Intact, Abnormal Gait (due to left hip pain) Psychiatric: Anxious, Tearful Skin Exam: Warm, Dry, Intact, Normal Color, No Rash Lymphatic: No Adenopathy Course - Vital Signs Last Recorded V/S: Last Vital Signs Temp 36.9 C 12/15/17 10:58 Pulse 100 12/15/17 10:58 Resp 20 12/15/17 10:58 BP 170/96 H 12/15/17 10:58 Pulse Ox 100 12/15/17 10:58 - Orders/Labs/Meds Orders: Active Orders 24 hr Category Date Time Status Orphenadrine [Norflex] Med 12/15/17 11:30 Ordered 60 mg IM Q12H Medication Orders Orphenadrine Citrate (Norflex) 60 mg IM Q12H [facility] Meds: Medications Generic Name Dose Route Start Last Admin Trade Name Freq PRN Reason Stop Dose Admin Orphenadrine Citrate 60 mg 12/15/17 11:30 Norflex IM Q12H [facility] Discontinued Medications Generic Name Dose Route Start Last Admin Trade Name Freq PRN Reason Stop Dose Admin Ketorolac Tromethamine 30 mg 12/15/17 11:23 Toradol IM 12/15/17 11:24 ONETIME ONE Departure - Departure Time of Disposition: 11:25 Disposition: Home, Self-Care 01 Condition: Fair Clinical Impression: Hip pain Qualifiers: Laterality: left Qualified Code(s): M25.552 - Pain in left hip - Discharge Information Instructions: Hip Pain Forms: ED Department Discharge Care Plan Goals: The patient was advised of the examination results during the visit. The patient was given an injection of Toradol and Norflex while in the ED. The patient was encouraged to follow-up with her primary care facility and specialists for continued evaluation and further management. If the patient has any additional symptoms or concerns, the patient should either visit her primary care facility or return to the emergency department. - My Orders Last 24 Hours: My Active Orders 12/15/17 11:30 Orphenadrine [Norflex] 60 mg IM Q12H - Assessment/Plan Last 24 Hours: My Active Orders 12/15/17 11:30 Orphenadrine [Norflex] 60 mg IM Q12H
== END 2017-12-15 11:53 | disposition home or self-care (01) ==
LOC: DL.ED 10:13
DX: M25.552 Pain in left hip (principal); I10 Essential (primary) hypertension; E66.9 Obesity, unspecified; F17.210 Nicotine dependence, cigarettes, uncomplicated; Z88.8 Allergy status to other drugs, medicaments and biological substances
CPT/HCPCS: 96374; 96375; 99283; J1885; J2360

== ENCOUNTER 2018-03-11 09:09 | Emergency (ER) | payer MEDICARE, MEDICAID ==
[2018-03-11 09:32] VITALS: BP 179/86
--- NOTE | 2018-03-11 09:35 | EDM.PDOC ---
ED HPI GENERAL MEDICAL PROBLEM - General Chief Complaint: General Stated Complaint: RT BREAST, PAIN Time Seen by Provider: 03/11/18 09:25 Source of Information: Reports: Patient History Limitations: Reports: No Limitations - History of Present Illness INITIAL COMMENTS - FREE TEXT/NARRATIVE: This 57 yo female patient reports to the ED with an 11 day history of left breast pain. The patient reports pain in her left breast that seems to radiate into her left axilla. The patient reports that she has noticed that her breast has been getting swollen and warm by the end of the day. The patient states that she has been taking ibuprofen and Tylenol as well as using heat and ice with no symptom relief. The patient reports she has been wearing supportive undergarments, but has also had to support her left breast with her arms due to increased pain with movement of the breast. The patient reports she was seen 1 week ago by Javier Britt in the [facility] for similar symptoms and was advised that this was nerve pain. The patient reports that there was no lab work done in the clinic and no imaging done during the visit. The patient reports they scheduled her to have a mammogram in March. The patient reports her last mammogram was about 1 year ago. The patient reports she called the clinic today and was advised to come to the Emergency Department due to her current symptoms. 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 Left Breast Pain Score (Numeric/FACES): 8 - Related Data Allergies Allergy/AdvReac Type Severity Reaction Status Date / Time sumatriptan [From Imitrex] Allergy Respiratory Verified 03/11/18 09:32 Distress sumatriptan succinate Allergy Difficulty Verified 03/11/18 09:32 [From Imitrex] Breathing amlodipine AdvReac Nausea Verified 03/11/18 09:32 duloxetine HCl AdvReac Diarrhea Verified 03/11/18 09:32 [From Cymbalta] gabapentin AdvReac Disorientat Verified 03/11/18 09:32 ion pregabalin [From Lyrica] AdvReac Diarrhea Verified 03/11/18 09:32 Home Meds: Home Meds Lisinopril/Hydrochlorothiazide [Lisinopril-Hctz 20-12.5 mg Tab] 1 tab PO BEDTIME 01/08/14 [History] Tiotropium [Spiriva Handihaler] 2 puff PO DAILY PRN 01/08/14 [History] Metoprolol Succinate [Toprol XL] 50 mg PO DAILY 09/26/14 [History] Dicyclomine [Bentyl] 20 mg PO ASDIRECTED PRN 09/29/14 [History] Fluticasone Propionate [Flonase] 2 sprays INH DAILY 09/29/14 [History] Acetaminophen [Tylenol Arthritis] 650 mg PO TID 06/07/17 [History] Cyclobenzaprine [Flexeril] 10 mg PO BID 06/07/17 [History] Ibuprofen 1 tab PO TID PRN 06/07/17 [History] Omeprazole 20 mg PO DAILY 06/07/17 [History] hydrOXYzine HCl [Atarax] 25 mg PO TID PRN 07/28/17 [History] Albuterol [Proair HFA] 2 puff INH ASDIRECTED PRN 12/15/17 [History] Past Medical History HEENT History: Reports: Allergic Rhinitis, Impaired Vision Cardiovascular History: Reports: Heart Murmur, High Cholesterol, Hypertension Respiratory History: Reports: Asthma, COPD Gastrointestinal History: Reports: Bowel Obstruction, Cholelithiasis, GERD, Irritable Bowel Syndrome Other Gastrointestinal History: Irritable Bowel 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: Musculoskeletal History: Reports: Arthritis, Fibromyalgia Other Musculoskeletal History: chronic hip pain Neurological History: Reports: CVA, Migraines, Seizure Psychiatric History: Reports: Addiction, Anxiety, Depression Other Psychiatric History: cutter Endocrine/Metabolic History: Reports: Obesity/BMI 30+ - Past Surgical History Female Surgical History: Reports: Hysterectomy Social & Family History - Family History Family Medical History: Noncontributory - Caffeine Use Caffeine Use: Reports: Coffee - Living Situation & Occupation Living situation: Reports: Single, with Significant Other Occupation: Disabled ED ROS GENERAL - Review of Systems Review Of Systems: ROS reveals no pertinent complaints other than HPI. ED EXAM, GENERAL - Physical Exam Exam: See Below Exam Limited By: No Limitations General Appearance: Alert, WD/WN, Moderate Distress, Obese Eye Exam: Bilateral Eye: EOMI, Normal Inspection, PERRL Ears: Normal External Exam, Normal Canal, Hearing Grossly Normal, Normal TMs Nose: Normal Inspection, Normal Mucosa, No Blood Throat/Mouth: Normal Inspection, Normal Lips, Normal Teeth, Normal Gums, Normal Oropharynx, Normal Voice, No Airway Compromise Head: Atraumatic, Normocephalic Neck: Normal Inspection, Supple, Non-Tender, Full Range of Motion Respiratory/Chest: No Respiratory Distress, Lungs Clear, Normal Breath Sounds, No Accessory Muscle Use, Chest Non-Tender Cardiovascular: Normal Peripheral Pulses, Regular Rate, Rhythm, No Edema, No Gallop, No JVD, No Murmur, No Rub GI/Abdominal: Normal Bowel Sounds, Soft, Non-Tender, No Organomegaly, No Distention, No Abnormal Bruit, No Mass (Female) Exam: Deferred Rectal (Female) Exam: Deferred Back Exam: Normal Inspection, Full Range of Motion, NT Extremities: Normal Inspection, Normal Range of Motion, Non-Tender, Normal Capillary Refill, No Pedal Edema Neurological: Alert, Oriented, CN II-XII Intact, Normal Cognition, Normal Gait, Normal Reflexes, No Motor/Sensory Deficits Psychiatric: Normal Affect, Normal Mood Skin Exam: Other (Examination of the patient's left breast revealed some erythema around the left nipple. The patient reported increased tenderness with palpation of the left breast around the nipple as wel as into the left axilla. The examination did not reveal any palpable masses or increased fluctuence. The patient had no drainage from the nipple. There was no apparent abscess identified during the examination. ) Lymphatic: No Adenopathy Course - Vital Signs Last Recorded V/S: Last Vital Signs Temp 36.8 C 03/11/18 09:15 Pulse 64 03/11/18 09:15 Resp 18 03/11/18 09:15 BP 179/86 H 03/11/18 09:15 Pulse Ox 99 03/11/18 09:15 - Orders/Labs/Meds Labs: Laboratory Tests 03/11/18 03/11/18 03/11/18 Range/Units 09:40 09:40 09:40 WBC 7.8 (5.0-10.0) 10^3/uL RBC 4.28 (4.2-5.4) 10^6/uL Hgb 13.9 (12.0-16.0) g/dL Hct 41.2 (37.0-47.0) % MCV 96.3 (80-100) fL MCH 32.5 (27.0-34.0) pg MCHC 33.7 (33.0-35.0) g/dL Plt Count 199 (150-450) 10^3/uL Neut % (Auto) 66.2 (42.2-75.2) % Lymph % (Auto) 25.2 (20.5-50.1) % [place] % (Auto) 6.5 (2-8) % Eos % (Auto) 1.8 (1.0-3.0) % Baso % (Auto) 0.3 (0.0-1.0) % Sodium 136 (135-145) mmol/L Potassium 4.0 (3.6-5.0) mmol/L Chloride 104 (101-111) mmol/L Carbon Dioxide 24.0 (21.0-31.0) mmol/L Anion Gap 12.0 BUN 17 (7-18) mg/dL Creatinine 0.7 (0.6-1.3) mg/dL Est Cr Clr Drug Dosing 70.98 mL/min Estimated GFR (MDRD) > 60 BUN/Creatinine Ratio 24.28 Glucose 95 (74-105) mg/dL Lactic Acid 0.9 (0.5-2.2) mmol/L Calcium 8.9 (8.4-10.2) mg/dl Total Bilirubin 0.5 (0.2-1.0) mg/dL AST 17 (10-42) IU/L ALT 18 (10-60) IU/L Alkaline Phosphatase 66 (42-121) IU/L Total Protein 7.2 (6.7-8.2) g/dl Albumin 3.8 (3.2-5.5) g/dl Globulin 3.4 Albumin/Globulin Ratio 1.12 Meds: Medications Discontinued Medications Generic Name Dose Route Start Last Admin Trade Name Freq PRN Reason Stop Dose Admin Ketorolac Tromethamine 30 mg 03/11/18 10:24 Toradol IM 03/11/18 10:25 ONETIME ONE Departure - Departure Time of Disposition: 10:26 Disposition: Home, Self-Care 01 Condition: Fair Clinical Impression: Cellulitis of left breast - Discharge Information *PRESCRIPTION DRUG MONITORING PROGRAM REVIEWED*: Not Applicable *COPY OF PRESCRIPTION DRUG MONITORING REPORT IN PATIENT SANDRA: Not Applicable Instructions: Cellulitis, Adult, [id number] Forms: ED Department Discharge Care Plan Goals: The patient was advised of the examination and lab results during the visit. The patient was given an injection of Toradol while in the ED. The patient was discharged with a script for Keflex (500 mg) #30 to take 1 by mouth 3 times per day for 10 days. If the patient has any additional symptoms or concerns, the patient should follow-up with her primary care facility or return to the emergency department.
[2018-03-11 10:13] LABS: CHLORIDE,CL 104 mmol/L (101-111); SODIUM,NA 136 mmol/L (135-145)
[2018-03-11] MEDS ORDERED: Ketorolac 30 MG/ML SDV IM ONE (10:24)
== END 2018-03-11 10:39 | disposition home or self-care (01) ==
LOC: DL.ED 09:09
DX: N61.0 Mastitis without abscess (principal); E78.00 Pure hypercholesterolemia, unspecified; I10 Essential (primary) hypertension; J44.9 Chronic obstructive pulmonary disease, unspecified; F41.9 Anxiety disorder, unspecified; F32.9 Major depressive disorder, single episode, unspecified; Z88.8 Allergy status to other drugs, medicaments and biological substances; Z79.899 Other long term (current) drug therapy; Z90.710 Acquired absence of both cervix and uterus; Z86.73 Personal history of transient ischemic attack (TIA), and cerebral infarction without residual deficits
CPT/HCPCS: 36415; 80053; 83605; 85025; 96372; 99283; J1885

== ENCOUNTER 2018-11-10 09:51 | Emergency (ER) | payer MEDICARE, MEDICAID ==
[2018-11-10 10:07] VITALS: BP 156/112
[2018-11-10] MEDS ORDERED: Sodium Chloride 0.9% 1,000 ML IV ONE (10:23)
[2018-11-10] MEDS ORDERED: Metoclopramide 10 MG/2 ML SDV IVPUSH ONE (10:25)
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
[2018-11-10] MEDS ORDERED: Iopamidol 612 MG/ML 75 ML Bottle IVPUSH ONE (10:57)
[2018-11-10 10:59] LABS: ANION GAP 17.4; CHLORIDE,CL 98 mmol/L (101-111); SODIUM,NA 135 mmol/L (135-145)
[2018-11-10] MEDS ORDERED: Pantoprazole 40 MG Vial IVPUSH ONE (11:29)
--- NOTE | 2018-11-10 12:56 | CT ---
Clinical history: 57-year-old 175 pound female smoker now in emergency department because of right-sided abdominal pain. Patient with history of "irritable bowel syndrome" has been vomiting for the past 2 days and has an abnormally elevated serum white blood cell count (12,100). Hysterectomy. Scan technique: Volume acquisition of data from the abdomen and pelvis obtained without oral contrast but during the intravenous ministration 75 cc nonionic Isovue contrast (3 cc/s via injector) while the patient was lying supine on the Siemens multi slice scanner [place], [place]. All data archived in the PACS system for storage, reformatting axial/sagittal/coronal planes and study. Interpretation: 1. Atheromatous calcifications scattered along the course of normal caliber aortoiliac vessels. No aneurysm or dissection. 2. Gallbladder, liver, stomach, spleen, pancreas and adrenal glands unremarkable. Large metallic clip right pelvis. 3. No ventral wall or inguinal hernias (uterus absent). No pelvic or abdominal mass lesion and no signs of pelvic, mesenteric or retroperitoneal lymphadenopathy. No inflammatory "dirty" peritoneal fat. No ascites or free intraperitoneal air. 4. Normal appendix RLQ. No calcified appendicoliths, right lower quadrant abscess or signs of mechanical SBO. 5. Lordotic lumbar spine with marginal spondylosis. No sign of paraspinal abscess or discitis. CONCLUSION: Normal appendix. Hysterectomy. Usual signs of senescence. No acute intraperitoneal abnormality.
== END 2018-11-10 13:22 | disposition home or self-care (01) ==
LOC: DL.ED 09:51
DX: K52.9 Noninfective gastroenteritis and colitis, unspecified (principal); E78.00 Pure hypercholesterolemia, unspecified; I10 Essential (primary) hypertension; J44.9 Chronic obstructive pulmonary disease, unspecified; F17.210 Nicotine dependence, cigarettes, uncomplicated; Z88.8 Allergy status to other drugs, medicaments and biological substances; Z79.899 Other long term (current) drug therapy
CPT/HCPCS: 36415; 74177; 80053; 80305; 81001; 83605; 85025; 87040; 87804; 96361; 96374; 96375; 99284; C9113; J2765; J7030; Q9967

== ENCOUNTER 2018-11-15 14:25 | Emergency (ER) | payer MEDICARE, MEDICAID ==
[2018-11-15] MEDS ORDERED: Promethazine 25 MG/ML SDV IM ONE (15:16)
[2018-11-15 15:19] LABS: ANION GAP 12.3; CHLORIDE,CL 103 mmol/L (101-111); SODIUM,NA 138 mmol/L (135-145)
[2018-11-15 15:20] LABS: ACETAMINOPHEN < 10 ug/mL
[2018-11-15] MEDS ORDERED: Iopamidol 612 MG/ML 75 ML Bottle IVPUSH ONE (15:27)
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
--- NOTE | 2018-11-15 16:37 | CT ---
Clinical history: 57-year-old hypertensive female smoker with recurrent abdominal pain ("increased" since last episode 10 November 2018 when patient had an elevated white blood cell count). Irritable bowel bowel syndrome. Hysterectomy. Scan technique: Volume acquisition of data from the abdomen and pelvis obtained without oral contrast but during the intravenous administration 75 cc nonionic Isovue (3 cc/s via injector) while patient was lying supine on the Siemens multislice scanner [place], [place]. All data archived in the PACS system for storage, reformatting axial/sagittal/coronal planes and study. Interpretation: 1. Gallbladder, liver, stomach, spleen, pancreas, adrenal glands and kidneys unremarkable. 2. Atheromatous calcifications outlining normal caliber aortoiliac vessels. No aneurysm or dissection. No sign of mucosal wall thickening or air in the bowel wall that would indicate ischemic bowel. No diverticula. 3. No abdominal or pelvic mass lesion, new signs of mesenteric/retroperitoneal lymphadenopathy, inflammatory "dirty" peritoneal fat, mechanical bowel obstruction, ascites or free intraperitoneal air. Normal appendix RLQ. 4. No acute new intraperitoneal abnormality since recent CT scan abdomen/pelvis 10 November 2018 or August 2014. 5. Lung bases clear. Osteopenia spine and hypertrophic spondylosis. Surgically absent uterus. No adnexal mass lesions. Note: Large metal clip lower pelvis on the right present and unchanged in appearance over the interval since 29 August 2014. CONCLUSION: No acute or new intraperitoneal abnormality.
[2018-11-15 17:31] VITALS: BP 111/69
== END 2018-11-15 17:35 | disposition home or self-care (01) ==
LOC: DL.ED 14:25
DX: G43.A0 Cyclical vomiting, in migraine, not intractable (principal); R10.31 Right lower quadrant pain; R10.84 Generalized abdominal pain; I10 Essential (primary) hypertension; Z86.73 Personal history of transient ischemic attack (TIA), and cerebral infarction without residual deficits; E66.9 Obesity, unspecified; K21.9 Gastro-esophageal reflux disease without esophagitis; Z90.710 Acquired absence of both cervix and uterus; F17.210 Nicotine dependence, cigarettes, uncomplicated; Z98.890 Other specified postprocedural states; Z88.8 Allergy status to other drugs, medicaments and biological substances; Z91.040 Latex allergy status; Z79.899 Other long term (current) drug therapy
CPT/HCPCS: 36415; 74177; 80053; 80305; 81001; 82140; 82150; 83690; 83735; 84484; 85025; 87040; 93005; 96372; 99284; G0480; J2550; Q9967

== ENCOUNTER 2019-02-08 17:23 | Emergency (ER) | payer MEDICARE, MEDICAID ==
[2019-02-08 17:40] VITALS: BP 123/75
== END 2019-02-08 17:58 | disposition left against medical advice (07) ==
LOC: DL.ED 17:23
DX: Z53.21 Procedure and treatment not carried out due to patient leaving prior to being seen by health care provider (principal)

== ENCOUNTER 2019-04-18 07:24 | Emergency (ER) | payer MEDICARE, MEDICAID ==
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
[2019-04-18 08:28] VITALS: BP 142/68
[2019-04-18] MEDS ORDERED: Butorphanol 2 MG/ML SDV IM ONE (08:35)
[2019-04-18] MEDS ORDERED: Promethazine 25 MG/ML SDV IM ONE (08:35)
== END 2019-04-18 09:15 | disposition home or self-care (01) ==
LOC: DL.ED 07:24
DX: N61.1 Abscess of the breast and nipple (principal); N76.0 Acute vaginitis; G89.29 Other chronic pain; I10 Essential (primary) hypertension; K21.9 Gastro-esophageal reflux disease without esophagitis; E78.00 Pure hypercholesterolemia, unspecified; J44.9 Chronic obstructive pulmonary disease, unspecified; Z88.8 Allergy status to other drugs, medicaments and biological substances; Z91.040 Latex allergy status; Z91.048 Other nonmedicinal substance allergy status; Z86.73 Personal history of transient ischemic attack (TIA), and cerebral infarction without residual deficits; Z79.899 Other long term (current) drug therapy
CPT/HCPCS: 96372; 99283; J0595; J2550

== ENCOUNTER 2019-04-22 06:57 | Emergency (ER) | payer MEDICARE, MEDICAID ==
[2019-04-22] MEDS ORDERED: Ketorolac 30 MG/ML SDV IM ONE (07:19)
[2019-04-22] MEDS ORDERED: Promethazine 25 MG/ML SDV IM ONE (07:19)
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
[2019-04-22] MEDS ORDERED: LORazepam 2 MG/ML Syringe IVPUSH ONE (07:30)
[2019-04-22] MEDS ORDERED: Sodium Chloride 0.9% 1,000 ML IV ONE (07:30)
[2019-04-22 07:32] VITALS: BP 157/83
[2019-04-22 07:52] LABS: CHLORIDE,CL 104 mmol/L (101-111); SODIUM,NA 139 mmol/L (135-145)
== END 2019-04-22 08:49 | disposition home or self-care (01) ==
LOC: DL.ED 06:57
DX: K58.0 Irritable bowel syndrome with diarrhea (principal); F43.0 Acute stress reaction; I10 Essential (primary) hypertension; E78.00 Pure hypercholesterolemia, unspecified; J44.9 Chronic obstructive pulmonary disease, unspecified; F41.9 Anxiety disorder, unspecified; F32.9 Major depressive disorder, single episode, unspecified; Z86.73 Personal history of transient ischemic attack (TIA), and cerebral infarction without residual deficits; Z79.899 Other long term (current) drug therapy; Z91.040 Latex allergy status; Z91.09 Other allergy status, other than to drugs and biological substances; Z88.8 Allergy status to other drugs, medicaments and biological substances
CPT/HCPCS: 36415; 80053; 80305; 81001; 82150; 83690; 85025; 96361; 96372; 96374; 99283; G0480; J1885; J2060; J2550; J7030

== ENCOUNTER 2019-04-22 08:58 | Emergency (ER) | payer MEDICARE, MEDICAID ==
[2019-04-22] MEDS ORDERED: LORazepam 2 MG/ML Syringe IM ONE (09:23)
[2019-04-22] MEDS ORDERED: Dicyclomine 10 MG Cap PO ONE (09:24)
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
== END 2019-04-22 09:36 | disposition home or self-care (01) ==
LOC: DL.ED 08:58
DX: F33.2 Major depressive disorder, recurrent severe without psychotic features (principal); F41.9 Anxiety disorder, unspecified; F43.0 Acute stress reaction; F43.20 Adjustment disorder, unspecified; K58.0 Irritable bowel syndrome with diarrhea; I10 Essential (primary) hypertension; K21.9 Gastro-esophageal reflux disease without esophagitis; E78.00 Pure hypercholesterolemia, unspecified; F17.210 Nicotine dependence, cigarettes, uncomplicated; E66.9 Obesity, unspecified; Z68.30 Body mass index [BMI] 30.0-30.9, adult; Z88.8 Allergy status to other drugs, medicaments and biological substances; Z91.040 Latex allergy status; Z79.899 Other long term (current) drug therapy; Z90.710 Acquired absence of both cervix and uterus; Z98.890 Other specified postprocedural states
CPT/HCPCS: 96372; 99283; A9270; J2060

== ENCOUNTER 2019-04-22 11:55 | Emergency (ER) | payer MEDICARE, MEDICAID ==
[2019-04-22 12:12] VITALS: BP 167/108
[2019-04-22 12:27] LABS: ACETAMINOPHEN < 10 ug/mL
[2019-04-22] MEDS ORDERED: LORazepam 2 MG/ML Syringe IM ONE (13:08)
[2019-04-22] MEDS ORDERED: Haloperidol Lactate 5 MG/ML SDV IM ONE (13:08)
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
== END 2019-04-22 15:23 ==
LOC: DL.ED 11:55
DX: F41.9 Anxiety disorder, unspecified (principal); F33.2 Major depressive disorder, recurrent severe without psychotic features; E78.00 Pure hypercholesterolemia, unspecified; I10 Essential (primary) hypertension; J44.9 Chronic obstructive pulmonary disease, unspecified; K21.9 Gastro-esophageal reflux disease without esophagitis; F17.210 Nicotine dependence, cigarettes, uncomplicated; Z88.8 Allergy status to other drugs, medicaments and biological substances; Z91.040 Latex allergy status; Z91.048 Other nonmedicinal substance allergy status; Z79.899 Other long term (current) drug therapy; Z86.73 Personal history of transient ischemic attack (TIA), and cerebral infarction without residual deficits
CPT/HCPCS: 36415; 96372; 99284; G0480; J1630; J2060

== ENCOUNTER 2019-05-13 22:48 | Emergency (ER) | payer MEDICARE, MEDICAID ==
[2019-05-13 23:32] LABS: ANION GAP 13.6; CHLORIDE,CL 106 mmol/L (101-111); SODIUM,NA 141 mmol/L (135-145)
[2019-05-13] MEDS ORDERED: Ondansetron 4 MG/2 ML SDV IV ONE (23:34)
[2019-05-13] MEDS ORDERED: Morphine 2 MG/ML Syringe IVPUSH ONE (23:34)
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
[2019-05-13] MEDS ORDERED: Iopamidol 612 MG/ML 75 ML Bottle IVPUSH ONE (23:50)
[2019-05-14] MEDS ORDERED: GI Cocktail Oral Solution 30 ML PO ONE (01:19)
[2019-05-14 01:50] VITALS: BP 134/57; PULSE 88
== END 2019-05-14 01:42 | disposition home or self-care (01) ==
LOC: DL.ED 22:48
DX: R10.13 Epigastric pain (principal); I10 Essential (primary) hypertension; E78.00 Pure hypercholesterolemia, unspecified; J44.9 Chronic obstructive pulmonary disease, unspecified; K21.9 Gastro-esophageal reflux disease without esophagitis; M19.90 Unspecified osteoarthritis, unspecified site; F41.9 Anxiety disorder, unspecified; F32.9 Major depressive disorder, single episode, unspecified; E66.9 Obesity, unspecified; F17.210 Nicotine dependence, cigarettes, uncomplicated; Z88.8 Allergy status to other drugs, medicaments and biological substances; Z91.040 Latex allergy status; Z91.09 Other allergy status, other than to drugs and biological substances; Z79.899 Other long term (current) drug therapy
CPT/HCPCS: 36415; 74177; 80053; 82150; 83690; 85025; 96374; 96375; 99284; A9270; J2270; J2405

== ENCOUNTER 2019-08-05 07:22 | Emergency (ER) | payer MEDICARE, MEDICAID ==
[2019-08-05] MEDS ORDERED: fentaNYL 100 MCG/2 ML SDV IVPUSH ONE ×2 (07:49→08:15)
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
[2019-08-05 08:22] LABS: ANION GAP 10.8; CHLORIDE,CL 105 mmol/L (101-111); SODIUM,NA 139 mmol/L (135-145)
[2019-08-05] MEDS ORDERED: Sodium Chloride 0.9% 500 ML IV SCH (08:45)
[2019-08-05 09:37] VITALS: BP 140/78; PULSE 42
== END 2019-08-05 09:33 | disposition home or self-care (01) ==
LOC: DL.ED 07:22
DX: K58.2 Mixed irritable bowel syndrome (principal); R00.1 Bradycardia, unspecified; I10 Essential (primary) hypertension; E78.00 Pure hypercholesterolemia, unspecified; K21.9 Gastro-esophageal reflux disease without esophagitis; E66.9 Obesity, unspecified; F32.9 Major depressive disorder, single episode, unspecified; J44.9 Chronic obstructive pulmonary disease, unspecified; Z68.30 Body mass index [BMI] 30.0-30.9, adult; Z79.51 Long term (current) use of inhaled steroids; Z79.899 Other long term (current) drug therapy; Z86.73 Personal history of transient ischemic attack (TIA), and cerebral infarction without residual deficits; Z88.5 Allergy status to narcotic agent; Z88.8 Allergy status to other drugs, medicaments and biological substances; Z91.040 Latex allergy status; Z91.048 Other nonmedicinal substance allergy status; Z98.890 Other specified postprocedural states
CPT/HCPCS: 36415; 80053; 81001; 83690; 85025; 93005; 96374; 99284; J3010; J7040

== ENCOUNTER 2019-08-20 20:22 | Emergency (ER) | payer MEDICARE, MEDICAID ==
[2019-08-20 20:37] VITALS: BP 149/131; PULSE 89
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
[2019-08-20] MEDS ORDERED: Sodium Chloride 0.9% 1,000 ML IV ONE (20:47)
[2019-08-20 21:08] LABS: ANION GAP 14.5; CHLORIDE,CL 99 mmol/L (101-111); SODIUM,NA 137 mmol/L (135-145)
== END 2019-08-20 21:32 | disposition home or self-care (01) ==
LOC: DL.ED 20:22
DX: L76.21 Postprocedural hemorrhage of skin and subcutaneous tissue following a dermatologic procedure (principal); I10 Essential (primary) hypertension; J44.9 Chronic obstructive pulmonary disease, unspecified; E66.9 Obesity, unspecified; K21.9 Gastro-esophageal reflux disease without esophagitis; Z88.8 Allergy status to other drugs, medicaments and biological substances; Z91.040 Latex allergy status; Z79.51 Long term (current) use of inhaled steroids; Z68.29 Body mass index [BMI] 29.0-29.9, adult; Z79.899 Other long term (current) drug therapy; Z86.73 Personal history of transient ischemic attack (TIA), and cerebral infarction without residual deficits
CPT/HCPCS: 36415; 80053; 83605; 85025; 87040; 87070; 96360; 99283; J7030

== ENCOUNTER → 2019-08-20 | Emergency (ER) | payer MEDICARE, MEDICAID | LOC: DL.ED 17:06 | DX: Z53.21 Procedure and treatment not carried out due to patient leaving prior to being seen by health care provider (principal) ==

== ENCOUNTER 2019-08-24 09:02 | Emergency (ER) | payer MEDICAID, MEDICARE ==
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
[2019-08-24 09:19] VITALS: BP 160/87; PULSE 75
[2019-08-24] MEDS ORDERED: diazePAM 5 MG/ML MDV IM ONE (09:35)
[2019-08-24] MEDS ORDERED: Ketorolac 30 MG/ML SDV IM ONE (09:36)
== END 2019-08-24 11:00 | disposition home or self-care (01) ==
LOC: DL.ED 09:02
DX: M62.830 Muscle spasm of back (principal); M62.838 Other muscle spasm; E66.9 Obesity, unspecified; I10 Essential (primary) hypertension; K21.9 Gastro-esophageal reflux disease without esophagitis; F41.9 Anxiety disorder, unspecified; F32.9 Major depressive disorder, single episode, unspecified; Z86.73 Personal history of transient ischemic attack (TIA), and cerebral infarction without residual deficits; Z98.890 Other specified postprocedural states; Z90.710 Acquired absence of both cervix and uterus; Z88.8 Allergy status to other drugs, medicaments and biological substances; Z91.040 Latex allergy status; Z79.899 Other long term (current) drug therapy
CPT/HCPCS: 72040; 96372; 99283; J1885; J3360

== ENCOUNTER 2019-09-25 18:28 | Emergency (ER) | payer MEDICARE, MEDICAID ==
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
[~2019-09-25 18:28] MED LIST: Albuterol 0.083% 2.5 MG/3 ML Neb Soln NEB ONE; Sodium Chloride 0.9% 1,000 ML IV ONE; Sodium Chloride 0.9% 10 ML Syringe FLUSH PRN
[2019-09-25] MEDS ORDERED: Etomidate 2 MG/ML 20 ML SDV IVPUSH ONE (18:29)
[2019-09-25] MEDS ORDERED: Rocuronium 100 MG/10 ML MDV IV ONE (18:29)
[2019-09-25] MEDS ORDERED: Succinylcholine 200 MG/10 ML MDV IV ONE (18:29)
[2019-09-25] MEDS: methylPREDNISolone Sodium Succinate 125 MG/2 ML SDV IVPUSH ONE ×2 (18:31→19:06)
[2019-09-25] MEDS ORDERED: Midazolam 1 MG/ML 2 ML SDV ONE (18:32)
[2019-09-25] MEDS ORDERED: fentaNYL 100 MCG/2 ML SDV ONE (18:32)
[2019-09-25] MEDS ORDERED: Succinylcholine 200 MG/10 ML MDV ONE (18:33)
[2019-09-25] MEDS ORDERED: Rocuronium 100 MG/10 ML MDV ONE (18:33)
[2019-09-25] MEDS ORDERED: Midazolam 1 MG/ML 2 ML SDV IVPUSH ONE (18:42)
[2019-09-25] MEDS ORDERED: fentaNYL 100 MCG/2 ML SDV IVPUSH ONE (18:42)
[2019-09-25] MEDS ORDERED: EPINEPHrine 1:10,000 1 MG/10 ML Syringe ONE (18:57)
[2019-09-25] MEDS ORDERED: EPINEPHrine 1:10,000 1 MG/10 ML Syringe IVPUSH ONE (19:00)
[2019-09-25 19:04] LABS: ANION GAP 20.1; CHLORIDE,CL 99 mmol/L (101-111); SODIUM,NA 138 mmol/L (135-145)
--- NOTE | 2019-09-25 19:12 | PCM.SN ---
- Free Text/Narrative Note: Intubation. Pt with gross swelling of tongue, labored breathing, anxious , respiratory distress. Pt pre-oxygenaed per mask, sedated with 18 mg of etomidate at 1836, relaxed with 80 mg of anectine at 183 Glidescope #3 blade, 6.5 ETT , gross swelling to oropharynx, epiglottis visualized, tube placed and stylet removed, tube advanced to 21 cm at lip at 183.Pos fogging, Pos ETCO2, and BBS. NG placed by nursing, pt medicated with 2 mg versed IV and 100 mcg fentanyl IV at 184. Additional etomidate 22 mg given slow IVP over next 15 minutes for sedation. 40 mg of Zemuron IV at 1843. [employer] present and report given and care handed off. Procedure time 1824 to 1914
[2019-09-25 19:13] VITALS: BP 121/108; PULSE 116
== END 2019-09-25 19:51 ==
LOC: DL.ED 18:28
DX: T78.3XXA Angioneurotic edema, initial encounter (principal); J44.9 Chronic obstructive pulmonary disease, unspecified; I10 Essential (primary) hypertension; E66.9 Obesity, unspecified; F32.9 Major depressive disorder, single episode, unspecified; Z88.5 Allergy status to narcotic agent; Z88.8 Allergy status to other drugs, medicaments and biological substances; Z91.048 Other nonmedicinal substance allergy status; Z91.040 Latex allergy status; Z79.51 Long term (current) use of inhaled steroids; Z68.26 Body mass index [BMI] 26.0-26.9, adult; Z79.899 Other long term (current) drug therapy; Z86.73 Personal history of transient ischemic attack (TIA), and cerebral infarction without residual deficits
CPT/HCPCS: 31500; 36415; 51702; 71045; 74018; 80053; 81001; 83605; 83880; 84484; 85025; 85610; 85730; 87086; 93005; 96361; 96374; 96375; 99285; J0171; J0330; J2250; J2930; J3010; J3490; J7030; J7613-GY